=== PATIENT | male | born 1980 | race Hispanic/Latino ===

== ENCOUNTER 2017-04-23 11:58 | Emergency (ER) | payer OTHER ==
[2017-04-23 11:58] VITALS: BMI 33.7
[2017-04-23 12:38] VITALS: BP 156/78; RESP 21; TEMP 97.3; O2SAT 97
--- NOTE | 2017-04-23 14:03 | ED PDOC ---
HPI: Psych/Substance Abuse Time Seen by Provider: 04/23/17 12:51 Chief Complaint (Nursing): Psychiatric Evaluation Chief Complaint (Provider): Anxiety History Per: Patient History/Exam Limitations: no limitations Onset/Duration Of Symptoms: Days Current Symptoms Are (Timing): Still Present Suicide/Self Injury Attempted (Context): None Additional Complaint(s): 37yo male with past medical history of anxiety and depression, presents to ED with complaints of anxiety secondary to running out of his Klonopin 3 days ago. Patient states his psychiatrist is on vacation so he has not been able to refil his prescription. Patient states he takes 2mg Klonopin 2 x daily and since he ran out of the medication, he has been feeling anxious with panic attacks, palpitations and chest tightness, which are all consistent with prior episodes of panic attack. Patient denies any syncope, radiation of pain, suicidal ideation. He also denies any alcohol abuse or drug use. Patient has no other medical complaints. Past Medical History Reviewed: Historical Data, Nursing Documentation, Vital Signs Vital Signs: Last Vital Signs Temp 97.3 F L 04/23/17 12:37 Pulse 114 H 04/23/17 12:37 Resp 21 04/23/17 12:37 BP 156/78 H 04/23/17 12:37 Pulse Ox 97 04/23/17 12:37 - Medical History PMH: Anxiety, Depression Denies: Diabetes, Hepatitis, HIV, HTN, Seizures, Sexually Transmitted Disease - Surgical History Surgical History: No Surg Hx - Family History Family History: States: No Known Family Hx - Home Medications Home Medications: Ambulatory Orders Medication Instructions Recorded Dicyclomine [Bentyl] 20 mg PO Q12 PRN #20 tab 01/17/15 Ondansetron ODT [Zofran ODT] 4 mg PO Q6H PRN #16 odt 01/17/15 busPIRone [Buspar] 10 mg PO BID #20 tab 01/04/16 Clonazepam [Klonopin] 1 mg PO BID #6 tab 04/26/16 Clonazepam [Klonopin] 2 mg PO BID #12 tablet 04/23/17 - Allergies Allergies/Adverse Reactions: Allergies Allergy/AdvReac Type Severity Reaction Status Date / Time No Known Allergies Allergy Verified 04/26/16 11:40 Review of Systems ROS Statement: Except As Marked, All Systems Reviewed And Found Negative Cardiovascular: Positive for: Other (chest tightness) Psych: Positive for: Anxiety. Negative for: Suicidal ideation Physical Exam - Reviewed Nursing Documentation Reviewed: Yes Vital Signs Reviewed: Yes - Physical Exam Appears: Positive for: Non-toxic, No Acute Distress Head Exam: Positive for: ATRAUMATIC, NORMAL INSPECTION, NORMOCEPHALIC Skin: Positive for: Normal Color Eye Exam: Positive for: Normal appearance Neck: Positive for: Supple Cardiovascular/Chest: Positive for: Regular Rate, Rhythm, Tachycardia Respiratory: Positive for: Normal Breath Sounds. Negative for: Respiratory Distress Gastrointestinal/Abdominal: Positive for: Normal Exam, Soft. Negative for: Tenderness Extremity: Positive for: Normal ROM Neurologic/Psych: Positive for: Alert, Oriented - ECG ECG: Positive for: Interpreted By Me ECG Rhythm: Positive for: Sinus Tachycardia, Nonspecific Changes Rate: 109 O2 Sat by Pulse Oximetry: 97 (RA) Pulse Ox Interpretation: Normal Medical Decision Making Medical Decision Making: Time: 1302 Impression: Anxiety Plan: -- [facility] consulted and shows last Klonopin, Provigil and Vivanze prescription was given on of February. Patient has been truthful about appropriate use of medications. Klonopin 2mg PO ordered Reassess Time: 1345 Patient with resolution of symptom after the Klonopin. He did not want further testing in ED for heart or abnormal EKG. Patient to be discharged home with 5 days supply of Klonopin until he can visit his psychiatrist for a follow up. Scribe Attestation: Documented by Teresa More acting as a scribe for Cole Dickerson DO. Provider Attestation: All medical record entries made by the Scribe were at my direction and personally dictated by me. I have reviewed the chart and agree that the record accurately reflects my personal performance of the history, physical exam, medical decision making, and the department course for this patient. I have also personally directed, reviewed, and agree with the discharge instructions and disposition. Disposition - Clinical Impression Clinical Impression: Anxiety - Patient ED Disposition Is Patient to be Admitted: No - Disposition Disposition: Routine/Home Disposition Time: 13:45 Condition: STABLE Additional Instructions: See your psychiatrist for further refills of maintenance psychiatric medications. Prescriptions: Clonazepam [Klonopin] 2 mg PO BID #12 tablet Instructions: Clonazepam (By mouth), Anxiety (ED) Forms: [facility] (Maltese)
[2017-04-28 13:07] VITALS: PULSE 109
== END 2017-04-23 15:55 | disposition home or self-care (01) ==
LOC: H.ER 11:58
DX: F41.0 Panic disorder [episodic paroxysmal anxiety] (principal); F32.9 Major depressive disorder, single episode, unspecified

== ENCOUNTER 2017-05-20 19:05 | Emergency (ER) | payer OTHER ==
[2017-05-20 19:05] VITALS: BMI 33.7
[2017-05-20 19:17] VITALS: BP 131/89; PULSE 119; RESP 22; TEMP 98.1; O2SAT 96
[2017-05-20] MEDS ORDERED: Albuterol-Ipratrop 3 mg / 0.5 (3 ml) UD INH STA (19:39)
[2017-05-20 20:22] LABS: BASO # 0.3 K/uL (0.0-0.2); BASO % 3.2 % (0.0-2.0); EOS # 0.8 K/uL (0.0-0.7); EOS % 7.6 % (0.0-4.0); HEMOGLOBIN 16.8 g/dL (12.0-18.0); LYMPH # 2.2 K/uL (1.0-4.3); LYMPH % 21.6 % (20.0-40.0); MEAN CORPUSCULAR HEMOGLOBIN 29.2 pg (27.0-31.0); MEAN CORPUSCULAR HGB CONC 33.6 g/dL (33.0-37.0); MEAN PLATELET VOLUME 9.3 fl (7.2-11.7); MONO % 9.9 % (0.0-10.0); NEUT # 5.8 K/uL (1.8-7.0); NEUT % 57.7 % (50.0-75.0); NRBC % 0.4 % (0.0-0.0); PLATELET COUNT 295 K/uL (130-400); RBC 5.74 Mil/uL (4.40-5.90); RED CELL DISTRIBUTION WIDTH 13.8 % (11.5-14.5); WHITE BLOOD COUNT 10.1 K/uL (4.8-10.8)
[2017-05-20 20:35] LABS: PARTIAL THROMBOPLASTIN TIME 32.7 Seconds (25.6-37.1); PROTHROMBIN TIME 10.7 Seconds (9.8-13.1)
[2017-05-20 20:36] LABS: ALB/GLOB RATIO 1.4 (1.0-2.1); ALBUMIN 4.6 g/dL (3.5-5.0); ALT/SGPT 78 U/L (21-72); AST/SGOT 42 U/L (17-59); BLOOD UREA NITROGEN 14 mg/dl (9-20); CALCIUM 9.5 mg/dL (8.4-10.2); GFR AFRICAN-AMERICAN > 60; GFR NON-AFRICAN AMERICAN > 60
[2017-05-20 20:49] LABS: B-TYPE NATRIURETIC PEPTIDE < 11.1 pg/ml (0-450)
--- NOTE | 2017-05-20 21:05 | ED PDOC ---
HPI: Chest Pain Time Seen by Provider: 05/20/17 19:22 Chief Complaint (Nursing): Chest Pain Chief Complaint (Provider): Cough and chest tightness History Per: Patient History/Exam Limitations: no limitations Onset/Duration Of Symptoms: Other (month) Additional Complaint(s): Patient is a 37 y/o male with a significant past medical history of anxiety and depression presenting to the emergency department for a productive cough ( greenish phlegm) ongoing for one month with associated chest tightness and difficulty breathing, especially at night, ongoing for three days. Also notes rhinorrhea for the past 2-3 weeks. Reports taking Tylenol for the flu and Claritin with minimal relief. Denies fever, sore throat, or other complaints. PMD: [facility] group in [place] Past Medical History Reviewed: Historical Data, Nursing Documentation, Vital Signs Vital Signs: Last Vital Signs Temp 98.1 F 05/20/17 19:15 Pulse 119 H 05/20/17 19:15 Resp 22 05/20/17 19:15 BP 131/89 05/20/17 19:15 Pulse Ox 96 05/20/17 21:08 - Medical History PMH: Anxiety, Depression Denies: Diabetes, Hepatitis, HIV, HTN, Seizures, Sexually Transmitted Disease - Family History Family History: States: Unknown Family Hx - Social History Current smoker - smoking cessation education provided: No Ex-Smoker (has not smoked in the last 12 months): No Alcohol: Other (rarely) Drugs: Denies - Home Medications Home Medications: Ambulatory Orders Medication Instructions Recorded Dicyclomine [Bentyl] 20 mg PO Q12 PRN #20 tab 01/17/15 Ondansetron ODT [Zofran ODT] 4 mg PO Q6H PRN #16 odt 01/17/15 busPIRone [Buspar] 10 mg PO BID #20 tab 01/04/16 Clonazepam [Klonopin] 1 mg PO BID #6 tab 04/26/16 Clonazepam [Klonopin] 2 mg PO BID #12 tablet 04/23/17 Albuterol HFA [Ventolin HFA 90 2 puff IH Q4H PRN #1 inh 05/20/17 mcg/actuation (8 g)] Azithromycin [Zithromax] 250 mg PO DAILY #6 dose 05/20/17 Oseltamivir [Tamiflu] 75 mg PO BID #10 cap 05/20/17 Prednisone 50 mg PO DAILY #4 tablet 05/20/17 - Allergies Allergies/Adverse Reactions: Allergies Allergy/AdvReac Type Severity Reaction Status Date / Time No Known Allergies Allergy Verified 04/26/16 11:40 Review of Systems ROS Statement: Except As Marked, All Systems Reviewed And Found Negative Constitutional: Negative for: Fever ENT: Positive for: Nose Discharge (rhinorrhea). Negative for: Throat Pain Cardiovascular: Positive for: Chest Pain (chest tightness) Respiratory: Positive for: Cough, Shortness of Breath, Sputum (greenish) Physical Exam - Reviewed Nursing Documentation Reviewed: Yes Vital Signs Reviewed: Yes - Physical Exam Appears: Positive for: Non-toxic, In Acute Distress Head Exam: Positive for: ATRAUMATIC, NORMOCEPHALIC Skin: Positive for: Warm, Diaphoresis Eye Exam: Positive for: EOMI, PERRL ENT: Positive for: Pharynx Is (clear with tacky mucus membranes). Negative for : Tonsillar Exudate, Tonsillar Swelling Neck: Positive for: Painless ROM, Supple Cardiovascular/Chest: Positive for: Regular Rate, Rhythm, Chest Non Tender. Negative for: Murmur Respiratory: Positive for: Decreased Breath Sounds, Rhonchi. Negative for: Wheezing Gastrointestinal/Abdominal: Positive for: Soft. Negative for: Tenderness Back: Positive for: Normal Inspection. Negative for: Decreased ROM Extremity: Positive for: Normal ROM. Negative for: Pedal Edema, Calf Tenderness Lymphatic: Negative for: Adenopathy Neurologic/Psych: Positive for: Alert. Negative for: Motor/Sensory Deficits - Laboratory Results Result Diagrams: 05/20/17 20:16 05/20/17 20:16 - ECG O2 Sat by Pulse Oximetry: 96 (RA) Pulse Ox Interpretation: Normal Medical Decision Making Medical Decision Making: Time: 19:39 Initial Impression: Cough Differential diagnoses include but are not limited to bronchitis, influenza, viral syndrome, pneumonia, bronchospasm Initial Plan: CBC Chest XR Albuterol 6 mL INH MethylPREDnisolone 125 mg IVP Blood Culture Peak flow assessment pre/post treatment Reevaluation Labs demonstrate no emergently significant abnormalities. CXR wnl. On reevaluation pt reports feeling better. No respiratory distress. DW pt findings and plan of care. Rx for bronchitis and influenza. Scribe Attestation: Documented by Charity Smith, acting as a scribe for Brinda Suarez MD. Provider Scribe Attestation: All medical record entries made by the Scribe were at my direction and personally dictated by me. I have reviewed the chart and agree that the record accurately reflects my personal performance of the history, physical exam, medical decision making, and the department course for this patient. I have also personally directed, reviewed, and agree with the discharge instructions and disposition. Disposition - Clinical Impression Clinical Impression: Bronchitis, Influenza-like illness - Disposition Referrals: [facility] [Provider Group] - 05/21/17 (Follow up with your doctor in 1-2 days for reevaluation) Disposition: Routine/Home Disposition Time: 21:00 Condition: IMPROVED Prescriptions: Albuterol HFA [Ventolin HFA 90 mcg/actuation (8 g)] 2 puff IH Q4H PRN #1 inh PRN Reason: ASTHMA Azithromycin [Zithromax] 250 mg PO DAILY #6 dose Oseltamivir [Tamiflu] 75 mg PO BID #10 cap Forms: [facility] ED School/Work Excuse
[2017-05-20 21:33] LABS: BASOPHIL 1 % (0-2); EOSINOPHIL 7 % (0-7); LYMPHOCYTE 21 % (20-50); MONOCYTE 10 % (0-10); NEUTROPHIL 61 % (42-75); PLATELET ESTIMATE NORMAL (NORMAL); TOTAL CELLS COUNTED 100
--- NOTE | 2017-05-21 09:43 | RAD ---
HISTORY: Cough and chest tightness COMPARISON: 12/05/2012 TECHNIQUE: Chest PA and lateral FINDINGS: LUNGS: No active pulmonary disease. PLEURA: No significant pleural effusion identified. No pneumothorax apparent. CARDIOVASCULAR: Normal. OSSEOUS STRUCTURES: No significant abnormalities. VISUALIZED UPPER ABDOMEN: Normal. OTHER FINDINGS: None. IMPRESSION: No active disease. No interval pathology noted
== END 2017-05-20 21:38 | disposition home or self-care (01) ==
LOC: H.ER 19:05
DX: J40 Bronchitis, not specified as acute or chronic (principal); F32.9 Major depressive disorder, single episode, unspecified; F41.9 Anxiety disorder, unspecified; Z87.891 Personal history of nicotine dependence
CPT/HCPCS: 71020; 80053; 83735; 83880; 84100; 85025; 85378; 85610; 85730; 87040; 87804; 94640; 96374; 99282; J2930